=== PATIENT | male | born 1965 | race Caucasian/White ===

== ENCOUNTER 2024-01-29 06:32 | Day surgery (SDC) | payer BC, SELFPAY ==
[2024-01-27 14:31] VITALS: BMI 28.0
--- NOTE | 2024-01-28 14:21 | P.CONAN_ITS ---
Documented by User: Lselie Magana NP 01/28/24 14:22 HPI - Anesthesia Eval Consult details Narrative: 58yo M for Colonoscopy Likely MH (father probable, son + muscle bx) Also reports questionable reaction to propofol. Awaiting previous [facility] anesthesia records. Case reviewed with Dr Patiño. [facility] Past Medical History Medical History Malignant hyperthermia Renal calculi Surgical History Surgical History (Updated 01/27/24 @ 14:30 by Diana Hawthorne RN) Hx of hernia repair Social History Social History (Updated 01/27/24 @ 14:31 by Diana Hawthorne RN) Household Members: Spouse Patient Tobacco Use Status: Never used Tobacco Use of substances other than those prescribed or required for medical reasons: No Are you DNR?: No Advance Directives: No Advance Directives Information Provided: Yes Meds Allergies Allergy/AdvReac Type Severity Reaction Status Date / Time Penicillins Allergy Unknown Unknown Verified 01/27/24 14:32 succinylcholine Allergy Malignant Verified 01/29/24 07:26 Hyperthermia Home Medications Medication Instructions Recorded Confirmed Last Taken Type No Known Home Meds 01/27/24 01/27/24 Unknown History Exam Height,Weight and Vital Signs: Height 5 ft 10 in Weight 88.451 kg Assessment and Plan Assessment Anesthesia Assessment: Chart Reviewed Documented by User: Kimmie Mahajan MD 01/29/24 07:32 [facility] Past Medical History Medical History Malignant hyperthermia Renal calculi Family History Family history of problems with anesthesia: No Surgical History Surgical History (Updated 01/27/24 @ 14:30 by Diana Hawthorne RN) Hx of hernia repair History of Problems with Anesthesia: No Social History Social History (Updated 01/27/24 @ 14:31 by Diana Hawthorne RN) Household Members: Spouse Patient Tobacco Use Status: Never used Tobacco Use of substances other than those prescribed or required for medical reasons: No Are you DNR?: No Advance Directives: No Advance Directives Information Provided: Yes Meds Allergies Allergy/AdvReac Type Severity Reaction Status Date / Time Penicillins Allergy Unknown Unknown Verified 01/27/24 14:32 succinylcholine Allergy Malignant Verified 01/29/24 07:26 Hyperthermia Home Medications Medication Instructions Recorded Confirmed Last Taken Type No Known Home Meds 01/27/24 01/27/24 Unknown History Exam Airway Mallampati Class: II TM Dist: >3cm Neck ROM: Full Assessment and Plan Assessment Anesthesia Assessment: Anesthesia Plan Discussed Final Anesthetic Review Family History of Problems with Anesthesia: No History of Problems with Anesthesia: No NPO: Yes ASA Class: II Final Preanesthetic Review: No Changes in Pt Med Stat, Meds/Allgs Chart Reviewed and Anes Risks/Benef Reviewed Patient Risk: Low Procedure Risk: Low Anesthetic Plan Anesthetic Plan: TIVA Disposition: Standard PACU
[2024-01-29 06:50] VITALS: BP 125/92; PULSE 79; RESP 18; TEMP 36; O2SAT 95; BMI 28.9
[2024-01-29] MEDS: Lactated Ringers 1,000 ML 100 ML IVCONT (07:08)
--- NOTE | 2024-01-29 07:39 | PC.NURSE ---
pt initiall states allergy to propofol, then changed mind, he tolerated propofol, allergy to succinocholine allergy instead. noted in emar. hyperthermia cart available for anesthesia.
[2024-01-29 08:16] VITALS: BP 112/73; PULSE 77; RESP 16; TEMP 36.1; O2SAT 94
[2024-01-29 08:21] VITALS: PULSE 69; TEMP 36.3; O2SAT 97
--- NOTE | 2024-01-29 08:24 | P.BOP_ITS ---
Brief Operative Note Date of Service: 01/29/24 Pre-op diagnosis: Screening Post-op diagnosis: other (Diverticulosis) Procedure: Colonoscopy to the cecum Surgeon: Abram Vaughn MD Anesthesia: MAC Was an Correctional Manager used for this Procedure?: No Estimated blood loss (mL): 0 Pathology: none sent Condition: stable Disposition: PACU
[2024-01-29 08:30] VITALS: BP 111/80; PULSE 68; RESP 16; TEMP 36.2; O2SAT 97
[2024-01-29 08:45] VITALS: BP 111/65; PULSE 67; RESP 16; TEMP 36; O2SAT 95
--- NOTE | 2024-01-29 10:03 | OP_ITS ---
DATE OF SERVICE: 01/29/2024 SURGEON: Abram Vaughn MD INDICATIONS: The patient presents for evaluation of colorectal cancer screening. Full consent has been obtained from him for this, including risks of bleeding and perforation. PREOPERATIVE DIAGNOSIS: POSTOPERATIVE DIAGNOSIS: PROCEDURE PERFORMED: Colonoscopy to the cecum. ESTIMATED BLOOD LOSS: COMPLICATIONS: ANESTHESIA: Monitored anesthesia care. ASSISTANTS: SPECIMENS: PREOPERATIVE DIAGNOSES: Colorectal cancer screening. POSTOPERATIVE DIAGNOSES: Colorectal cancer screening, occasional sigmoid diverticulosis, and internal hemorrhoids. Limited bowel prep. DESCRIPTION OF PROCEDURE: The patient was placed in the left lateral decubitus position. The digital rectal exam revealed no abnormalities. The Olympus video pediatric colonoscope was entered into the rectum and advanced easily to the cecum. Once in the cecum, after copious irrigation and suctioning, I was able to achieve a good visualization of the cecum including the appendiceal orifice. This all appeared normal. There was transillumination of light deep in the right lower quadrant. The scope was then slowly withdrawn assessing all mucosal surfaces carefully. Preparation in the ascending and transverse colon was quite good after some suctioning and irrigation. However, in the areas of the descending and sigmoid colon, there was some fair amount of residual stool both solid and liquid, which could not be removed completely. The area was irrigated and suctioned as best as possible but again could not be visualized 100%. Overall, I did not visualize any sign of polyps, colitis, or angiodysplasia. There were occasional diverticula in the sigmoid colon. In the rectum, scope was retroflexed visualizing internal hemorrhoids, but no other pathology. The rectal mucosa appeared normal. The scope was straightened and withdrawn from the patient. He tolerated the procedure well and was returned to the recovery area in stable condition. IMPRESSION: 1. Mild sigmoid diverticulosis. 2. Internal hemorrhoids. PLAN: Given the somewhat limited exam. I have recommended that he obtain a Cologuard test from his primary care provider. Assuming that is negative, I would then recommend a repeat colonoscopy in 5 years rather than 10. If the Cologuard happens to be positive, then I would recommend a repeat colonoscopy with a better prep later this year. If this Cologuard is negative, I would recommend an another Cologuard test in 2 to 3 years and then again a followup colonoscopy 5 years from now. As long as the Cologuard tests remain negative. He would otherwise see me on a p.r.n. basis. This has been discussed with his . MD MOE Price/SEAN / [id number]
== END 2024-01-29 09:25 | disposition home or self-care (01) ==
PROVIDERS: Visit Provider Internal Medicine
PROC: 0DJD8ZZ Inspection of Lower Intestinal Tract, Via Natural or Artificial Opening Endoscopic (ICD-10-PCS; CPT 45378; principal; 2024-01-29 07:30)
DX: Z12.11 Encounter for screening for malignant neoplasm of colon (principal); Z83.719 Family history of colon polyps, unspecified; K57.30 Diverticulosis of large intestine without perforation or abscess without bleeding; K64.8 Other hemorrhoids; Z87.442 Personal history of urinary calculi; Z88.0 Allergy status to penicillin
CPT/HCPCS: 45378; J2704